=== PATIENT | female | born 1960 | race African-American/Black ===

== ENCOUNTER 2017-11-11 14:05 | Emergency (ER) | payer MEDICAID, OTHER ==
[~2017-11-11] VITALS: Ht 162.6 cm; Wt 65.0 kg
[~2017-11-11 14:05] MED LIST: AMLO10TA80 PO; FOLI-43 PO; LEVE750T10 PO; PHEN100C12 PO; VALP250C3 PO
[2017-11-11] MEDS ORDERED: SODIUM CHLORIDE 0.9% 1,000 ML IV ONE (14:34)
[2017-11-11 14:52] LABS: HEMATOCRIT. 39.2 % (36.0-48.0); HEMOGLOBIN. 13.1 g/dL (12.0-16.0); MEAN CORPUSCULAR HEMOGLOBIN 32.2 pg (28.0-32.0); MEAN CORPUSCULAR VOLUME 96.4 fL (81.0-99.0); MEAN PLATELET VOLUME 8.4 fl (7.4-10.4); PLATELET 173 x1000/uL (130-400); RED BLOOD CELL COUNT 4.06 mill/uL (4.2-5.4); RED CELL DISTRIBUTION WIDTH 13.2 % (11.6-14.6)
[2017-11-11 15:06] LABS: CARBON DIOXIDE 24 mEq/L (21-32); CHLORIDE 104 mEq/L (98-107); ETHANOL BLOOD < 10 mg/dL
[2017-11-11 15:08] LABS: VALPROIC ACID < 3.0 ug/mL (50-100)
[2017-11-11 16:30] LABS: PLATELET ESTIMATE NORMAL
[2017-11-11] MEDS ORDERED: VALPROATE SODIUM 500 MG in SODIUM CHLORIDE 0.9% 100 ML IV ONE (16:30)
[2017-11-11 21:45] VITALS: BP 135/70
== END 2017-11-11 21:45 | disposition home or self-care (01) ==
LOC: ER 14:24
DX: R56.9 Unspecified convulsions (principal); I10 Essential (primary) hypertension; F12.10 Cannabis abuse, uncomplicated; R32 Unspecified urinary incontinence; Z91.14 Patient's other noncompliance with medication regimen
CPT/HCPCS: 36415; 71010; 80053; 80165; 80185; 85025; 96365; 99285; G0482; J3490; Z7610; J7030; J7050; A4315